=== PATIENT | male | born 1995 | race African-American/Black ===

== ENCOUNTER 2018-11-16 09:50 | Emergency (ER) | payer OTHER ==
[2018-11-16 10:09] VITALS: BP 126/86
--- NOTE | 2018-11-16 10:17 | ED Physician Documentation ---
Upper Respiratory Symptoms - HISTORIAN Historian: patient - HPI Stated Complaint: Fever Chief Complaint: Upper Respiratory Symptoms Additional Information: Patient is a 23-year-old male who presents to the ER with c/o fever, cough, congestion, sinus pressure, headache, runny nose, ear pressure, and body aches. Symptoms started 2-3 days ago. He has been trying to take "Muccinex 12 hr" and Ibuprofen for body aches and fever. He has not had the flu vaccine. Onset: days ago (2-3 days ago) Duration: constant Context: denies: recent foreign travel Severity: moderate Associated Symptoms: fever, chills, earache, runny nose, sinus pain, sinus drainage, sore throat, productive cough Worsened by Deep Breath: No Further Comments: no - ROS CONST/EYES: weakness CVS/RESP: none LYMPH: denies: rash, swollen glands GI/: none NEURO/PSYCH: denies: dizziness MS/SKIN: muscle aches - PAST HX Lung Disease: none PE Risk Factors: none Surgeries/Procedures: other (tonsils, adenoids, wisdom teeth, varicocele) Immunizations: UTD. denies: influenza Allergies/Adverse Reactions: Allergies Allergy/AdvReac Type Severity Reaction Status Date / Time No Known Allergies Allergy Verified 11/16/18 10:09 Home Medications: Ambulatory Orders Medication Instructions Recorded Amoxicillin/Potassium Clav 875 each PO BID 10 Days #20 tablet 11/16/18 [Augmentin 875Mg/125Mg] NK 11/16/18 - SOCIAL HX Smoking History: cigarettes, less than 1 pack/day Alcohol Use: none Drug Use: none - FAMILY HX Family History: no significant history - VITAL SIGNS Vital Signs: Vital Signs Temp Pulse Resp BP Pulse Ox 98.2 F 91 H 15 126/86 97 11/16/18 10:18 11/16/18 10:18 11/16/18 10:18 11/16/18 10:18 11/16/18 10:18 - REVIEWED ASSESSMENTS Nursing Assessment Reviewed: Yes Vitals Reviewed: Yes ED Results Lab/Radiology - Lab Results Lab Results: Lab Results 11/16/18 10:10 Influenza A (Rapid) Positive H (NEGATIVE) Influenza B (Rapid) Negative (NEGATIVE) - Orders Orders: ED Orders Category Date Time Status INFLUENZA A&B Stat Lab 11/16/18 10:10 Completed Upper Respiratory Symptoms - EXAM General Appearance: no acute distress, alert EENT: eyes nml inspection, PERRL, pain over sinuses, maxillary, TM dullness (R), TM dullness (L), purulent nasal drainage, airway nml, pharyngeal erythema Neck: normal inspection Respiratory: no resp. distress, breath sounds nml, speaks full sentences, other (wet cough) Abdomen: non-tender, nml bowel sounds CVS: heart sounds normal, equal pulses Skin: warm,dry, pallor Extremities: normal range of motion Neuro/Psych: oriented x3, neuro intact Discharge Clincal Impression: Influenza A, Acute sinus infection Prescriptions: Amoxicillin/Potassium Clav [Augmentin 875Mg/125Mg] 875 each PO BID 10 Days #20 tablet Referrals: Primary Doctor,No [Primary Care Provider] - 2 Days Additional Instructions: Take antibiotic as directed for sinus infection Increase fluid intake (no caffeine) use a cool mist humidifier no smoking Continue with mucinex Alternate Tylenol and Ibuprofen for fever/discomfort Follow up with PCP if no improvement Condition: Good Disposition: 01 HOME, SELF-CARE Decision to Admit: NO Decision Time: 14:20
== END 2018-11-16 10:18 | disposition home or self-care (01) ==
LOC: ED 09:50
DX: J09.X2 Influenza due to identified novel influenza A virus with other respiratory manifestations (principal); J01.90 Acute sinusitis, unspecified; Z72.0 Tobacco use
CPT/HCPCS: 87400; 99283